=== PATIENT | female | born 1980 | race American Indian/Alaskan Native ===

== ENCOUNTER 2020-12-09 07:50 | Emergency (ER) | payer MEDICAID, OTHER ==
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
[2020-12-09 09:15] LABS: Basophils # (Auto) 0.1 K/mm3 (0.0-0.1); Basophils % (Auto) 1.6 % (0.0-1.8); Eosinophils # (Auto) 0.1 K/mm3 (0.0-0.4); Eosinophils % (Auto) 1.6 % (0.0-4.3); Hematocrit 30.1 % (30.3-42.9); Hemoglobin 10.3 gm/dl (10.1-14.3); Mean Corpuscular HGB Conc 34 % (30-34); Mean Corpuscular Volume 92 fl (79-97); Monocytes # (Auto) 0.4 K/mm3 (0.0-0.8); Platelet Count 290 K/mm3 (140-440); Red Blood Count 3.26 M/mm3 (3.65-5.03); Red Cell Distribution Width 13.5 % (13.2-15.2)
[2020-12-09 09:38] LABS: Alanine Aminotransferase 23 units/L (7-56); Albumin 3.7 g/dL (3.9-5); BUN/Creatinine Ratio 17; Blood Urea Nitrogen 10 mg/dL (7-17); Calcium 8.2 mg/dL (8.4-10.2); Hemolysis Index 2
[2020-12-09] MEDS ORDERED: LORazepam 2 MG/ML VIAL IM STA (10:20)
[2020-12-09] MEDS ORDERED: diphenhydrAMINE 50 MG/ML VIAL IM ONE (10:20)
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
[2020-12-09] MEDS: HALOPERIDOL LACTATE 5 MG/1 ML INJ IM PRN (10:54)
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
[2020-12-09 15:37] LABS: Bilirubin,Urine NEG (Negative); Blood,Urine LG (Negative); Color,Urine Straw (Yellow); Protein,Urine <15 mg/dL mg/dL (Negative); Urobilinogen,Urine < 2.0 mg/dL (<2.0)
[2020-12-09 15:39] LABS: HCG Qualitative,Urine Negative (Negative)
[2020-12-09 15:43] LABS: Amphetamine Screen,Urine Negative; Benzodiazepines Screen,Urine Negative; Cannabinoid Screen,Urine Negative; Cocaine Screen,Urine Negative; Methadone Screen,Urine Negative; Opiate Screen,Urine Negative
[2020-12-10] MEDS ORDERED: NEOMY 3.5 MG/BACIT 400 UNITS/POLY B 5000 UNITS/GM OINT PACKET TP ONE (03:43)
[2020-12-10 08:12] VITALS: BP 115/82
[2020-12-10] MEDS: HALOPERIDOL LACTATE 5 MG/1 ML INJ IM PRN (08:40)
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
[2020-12-10] MEDS ORDERED: MELATONIN 5 MG TAB PO PRN (10:37)
[2020-12-10] MEDS: DIVALPROEX DR 125 MG TAB PO SCH ×2 (12:09→22:06)
[2020-12-10] MEDS: risperiDONE 0.25 MG TAB PO SCH ×2 (12:09→22:07)
[2020-12-10] MEDS: traZODone 50 MG TAB PO SCH ×2 (22:07→22:08)
== END 2020-12-11 03:15 ==
LOC: ED 07:50
DX: S09.90XA Unspecified injury of head, initial encounter (principal); T07.XXXA Unspecified multiple injuries, initial encounter; F23 Brief psychotic disorder; Z00.8 Encounter for other general examination; Z20.828 Contact with and (suspected) exposure to other viral communicable diseases; Y08.89XA Assault by other specified means, initial encounter; Y93.89 Activity, other specified; Y92.89 Other specified places as the place of occurrence of the external cause; Y99.8 Other external cause status
CPT/HCPCS: 36415; 70450; 80053; 80307; 81001; 81025; 84443; 85025; 96372; 99285; A6250; J1200; J1630; J2060; U0003; 80320; G0480

== ENCOUNTER 2020-12-31 00:29 | Emergency (ER) | payer SELFPAY ==
--- NOTE | 2020-12-31 01:00 | Emergency Department Report ---
ED General Adult HPI - General Stated complaint: BLOOD SUGAR CHECK - History of Present Illness Initial comments: Patient is a 40-year-old -[place] Citizen female with past medical history of [id number] diabetes who presents to the ED with complaint of acute onset persistent elevated blood pressure sugar for the last 2 days. Patient presented to the ED stating that if she would like blood sugar be checked to ascertain whether it is still high. Patient states that she does not take any diabetes medications. Patient states that she is currently homeless and also looking for a place to temporarily stay until morning break. Patient denies chest pain, shortness of breath, fever, chills, nausea, vomiting, cough, abdominal pain, diaphoresis, change in vision, syncope, palpitations or dizziness. MD Complaint: elevated blood sugar -: Sudden, days(s) (2) Radiation: non-radiation Severity scale (0 -10): 0 Consistency: intermittent Improves with: none Worsens with: none Associated Symptoms: denies other symptoms. denies: confusion, chest pain, cough, diaphoresis, fever/chills, headaches, loss of appetite, malaise, nausea/vomiting, rash, seizure, shortness of breath, syncope, weakness, other Treatments Prior to Arrival: none - Related Data Allergies Allergy/AdvReac Type Severity Reaction Status Date / Time No Known Allergies Allergy Unverified 12/31/20 00:50 ED Review of Systems ROS: Stated complaint: BLOOD SUGAR CHECK Other details as noted in HPI Constitutional: other (Elevated blood sugar). denies: chills, fever Eyes: denies: eye pain, eye discharge, vision change ENT: denies: ear pain, throat pain Respiratory: denies: cough, shortness of breath, wheezing Cardiovascular: denies: chest pain, palpitations Endocrine: no symptoms reported Gastrointestinal: denies: abdominal pain, nausea, diarrhea Genitourinary: denies: urgency, dysuria, discharge Musculoskeletal: denies: back pain, joint swelling, arthralgia Skin: denies: rash, lesions Neurological: denies: headache, weakness, paresthesias Psychiatric: denies: anxiety, depression Hematological/Lymphatic: denies: easy bleeding, easy bruising ED Past Medical Hx - Past Medical History Additional medical history: Pt denies any PMH - Surgical History Additional Surgical History: Pt denies any surgery - Social History Smoking Status: Never Smoker Substance Use Type: None ED Physical Exam - General General appearance: alert, in no apparent distress - Head Head exam: Present: atraumatic, normocephalic, normal inspection - Eye Eye exam: Present: normal appearance, PERRL, EOMI Pupils: Present: normal accommodation - ENT ENT exam: Present: normal exam, normal orophraynx, mucous membranes moist, TM's normal bilaterally, normal external ear exam - Neck Neck exam: Present: normal inspection, full ROM - Respiratory Respiratory exam: Present: normal lung sounds bilaterally. Absent: respiratory distress, wheezes, rales, stridor, chest wall tenderness, accessory muscle use, decreased breath sounds, prolonged expiratory - Cardiovascular Cardiovascular Exam: Present: regular rate, normal rhythm, normal heart sounds. Absent: systolic murmur, diastolic murmur, rubs, gallop - GI/Abdominal GI/Abdominal exam: Present: soft, normal bowel sounds. Absent: tenderness, guarding, rebound, hyperactive bowel sounds, hypoactive bowel sounds, organomegaly - Extremities Exam Extremities exam: Present: normal inspection, full ROM, normal capillary refill - Back Exam Back exam: Present: normal inspection, full ROM. Absent: muscle spasm, paraspinal tenderness, vertebral tenderness - Neurological Exam Neurological exam: Present: alert, oriented X3, CN II-XII intact, normal gait, reflexes normal - Psychiatric Psychiatric exam: Present: normal affect, normal mood - Skin Skin exam: Present: warm, dry, intact, normal color. Absent: rash ED Medical Decision Making - Medical Decision Making This is a 40-year-old -[place] Citizen female with past medical history of [id number] diabetes who presents to the ED with complaint of acute onset persistent elevated blood pressure sugar for the last 2 days. Patient presented to the ED stating that if she would like blood sugar be checked to ascertain whether it is still high. Patient states that she does not take any diabetes medications. Patient states that she is currently homeless and also looking for a place to temporarily stay until morning break. In the ED, patient is alert and oriented x3 and is not in any distress with normal vital signs. Patient's [id number] glucose measurement was 84 mg/dL, which is normal. Patient had no other complaints in the ED except to ask for a place to stay temporarily until morning break. Patient was therefore discharged home and advised to follow-up with her primary care physician as needed. Patient was advised return to the ED immediately if symptoms get worse. - Differential Diagnosis Hyperglycemia, generalized weakness, hypertension, anxiety, homelessness Critical care attestation.: If time is entered above; I have spent that time in minutes in the direct care of this critically ill patient, excluding procedure time. ED Disposition Clinical Impression: Homelessness Disposition: DC-01 TO HOME OR SELFCARE Is pt being admited?: No Does the pt Need Aspirin: No Condition: Stable Additional Instructions: Follow-up with your primary care physician as needed. Return to the ED immediately if your symptoms get worse. Referrals: [facility] [Provider Group] - as needed Time of Disposition: 01:00 Print Language: LATVIAN
[2020-12-31 01:02] VITALS: BP 119/76
== END 2020-12-31 02:04 | disposition home or self-care (01) ==
LOC: ED 00:29
DX: R73.9 Hyperglycemia, unspecified (principal); Z59.0 Homelessness
CPT/HCPCS: 82962; 99282